=== PATIENT | female | born 1965 | race African-American/Black ===

== ENCOUNTER 2021-03-26 16:38 | Emergency (ER) | payer OTHER ==
[~2021-03-26] VITALS: Ht 154.9 cm; Wt 45.4 kg
[2021-03-26] MEDS ORDERED: IV NS 0.9% 500 ML BAG IV ONE ×2 (17:00→19:30)
--- NOTE | 2021-03-26 17:00 | NUR ---
VIRGILIO Hernandez [id number] "Co-worker/spot billing clerk at station acting confused/altered". On room air, breathing evenly and unlabored. Connected to the monitor and pulse ox. kept comfortable, will continue to monitor accordingly.
--- NOTE | 2021-03-26 17:46 | NUR ---
patient refused ct, notified.
--- NOTE | 2021-03-26 17:58 | NUR ---
CT taken, patient is back in the room.
--- NOTE | 2021-03-26 18:18 | NUR ---
patient still refused blood draw, notified.
[2021-03-26] MEDS ORDERED: LABETALOL HCL IV 100MG VIAL IV ONE (18:30)
[2021-03-26] MEDS ORDERED: LABETALOL HCL IV 100MG VIAL ONE (18:34)
[2021-03-26 18:41] LABS: BILIRUBIN,URINE NEGATIVE (NEGATIVE); COLOR,URINE YELLOW (YELLOW); LEUKOCYTE ESTERASE ,URINE SMALL (NEGATIVE); NITRITE, URINE NEGATIVE (NEGATIVE); PROTEIN,URINE NEGATIVE (NEGATIVE); UGLUCOSE NEGATIVE (NEGATIVE); UROBILINOGEN,URINE 0.2 EU/dL (0.2)
[2021-03-26] MEDS ORDERED: ONDANSETRON HCL/PF 4 MG/2 ML VIAL ONE (18:47)
[2021-03-26 18:50] LABS: BACTERIA,URINE Few /HPF (None Seen); RBC,URINE 0-2 /HPF (0-2); SQUAMOUS EPITHELIAL CELL,UR Rare /HPF (None Seen)
[2021-03-26] MEDS: ONDANSETRON HCL/PF - ER 4 MG/2 ML VIAL IV ONE ×2 (19:09→19:21)
[2021-03-26] MEDS ORDERED: SULF1TAB47 PO (19:17)
[2021-03-26] MEDS ORDERED: CEFTRIAXONE 1GM BAG (ER ONLY) 50 ML IV ONE (19:17)
[2021-03-26] MEDS ORDERED: CEFTRIAXONE 1 G in IV D5W 50 ML IV ONE (19:30)
[2021-03-26] MEDS ORDERED: hydrALAZINE HCL IV 20 MG VIAL IV ONE (19:30)
[2021-03-26] MEDS ORDERED: hydrALAZINE HCL IV 20 MG VIAL ONE (19:36)
--- NOTE | 2021-03-26 20:10 | NUR ---
Patient discharged to home in stable condition. Written and verbal after care instructions given. Patient verbalizes understanding of instruction.IV removed. Catheter intact and site benign. Pressure and 4x4 applied to site. No bleeding noted.Ms. Sutherland is ambulatory with a steady gait acoompanied by co worker from [facility]
[2021-03-26 20:11] VITALS: BP 145/100
== END 2021-03-26 20:12 | disposition home or self-care (01) ==
LOC: ER 16:40
DX: N39.0 Urinary tract infection, site not specified (principal); E86.0 Dehydration; R41.0 Disorientation, unspecified; I10 Essential (primary) hypertension; Z79.899 Other long term (current) drug therapy; Z60.2 Problems related to living alone
CPT/HCPCS: 36415; 70450; 71045; 80307; 81001; 82962; 85730; 87086; 93005; 96361; 96365; 96375; 99285; J0360; J0696; J2405 ×2; J3490; J7040 ×2